=== PATIENT | female | born 1945 | race Caucasian/White ===

== ENCOUNTER → 2018-01-17 | Outpatient (CLI) | payer MEDICARE, OTHER ==
[~2018-01-17] MED LIST: ARTH650T6 PO; CALC1TAB87 PO; DIPH25CA PO; FLUO20CA12 PO; HYDR12.57 PO; LEVO75TA3 PO; LOSA100T PO; MULT-65 PO; PERC5TAB12 PO; PREM0.3T2 PO; ZOFR8TAB4 SL
[2018-01-17 14:31] LABS: AUTOMATED NEUTROPHIL # 3.2 TH/MM3 (1.8-7.7); BASOPHIL # 0.1 TH/MM3 (0-0.2); BASOPHIL % 1.5 % (0.0-2.0); EOSINOPHIL # 0.2 TH/MM3 (0-0.4); EOSINOPHIL % 2.8 % (0.0-4.0); HEMOGLOBIN 13.3 GM/DL (11.6-15.3); LYMPH % 35.2 % (9.0-44.0); LYMPHOCYTE # 2.1 TH/MM3 (1.0-4.8); MEAN CORPUSCULAR HEMOGLOBIN 31.6 PG (27.0-34.0); MEAN PLATELET VOLUME 7.6 FL (7.0-11.0); MONO % 6.2 % (0.0-8.0); MONOCYTE # 0.4 TH/MM3 (0-0.9); NEUT % 54.3 % (16.0-70.0); PLATELET COUNT 277 TH/MM3 (150-450); RED CELL DISTRIBUTION WIDTH 13.8 % (11.6-17.2); WHITE BLOOD COUNT 5.9 TH/MM3 (4.0-11.0)
[2018-01-17 14:41] LABS: BACTERIA, URINE RARE /hpf; BILIRUBIN, URINE NEG (NEG); BLOOD, URINE NEG (NEG); GLUCOSE,URINE NEG (NEG); HYALINE CAST, URINE 2 /lpf (RARE); KETONE, URINE NEG (NEG); NITRITE,URINE NEG (NEG); SQUAMOUS EPITHELIAL CELL URINE 4 /hpf (0-5); URINE COLOR YELLOW (YELLW/STRAW); URINE LEUKOCYTE ESTERASE SMALL (NEG)
--- NOTE | 2018-01-17 16:32 | EKG ---
Date Performed: 01/17/2018 Time Performed: 14:13:14 PTAGE: 72 years EKG: Sinus rhythm NORMAL ECG NO PREVIOUS TRACING DOCTOR: Shaji Sanders Interpretating Date/Time 01/17/2018 16:30:24
== END ==
LOC: CPRE 13:51
PROVIDERS: ATTEND Obstetrics & Gynecology
DX: Z01.810 Encounter for preprocedural cardiovascular examination (principal); Z01.812 Encounter for preprocedural laboratory examination; D25.9 Leiomyoma of uterus, unspecified; R10.2 Pelvic and perineal pain
CPT/HCPCS: 36415; 81001; 85025; 93005

== ENCOUNTER 2018-01-19 10:51 | Observation (INO) | payer MEDICARE, OTHER ==
--- NOTE | 2018-01-18 12:56 | MH ---
cc: Joe Kraft MD DATE OF ADMISSION: 01/19/2018 ADMITTING DIAGNOSIS: Pelvic pain with uterine fibroids. HISTORY OF PRESENT ILLNESS: The patient is a 72-year-old single white female, para 3-0-1-3, who returned for followup evaluation on 12/08/2017 reporting deep dyspareunia with no bleeding. Her vaginal ultrasound showed uterus with multiple fibroids and these appear to correlate with her pain location. Endometrium was 5 mm. Ovaries appeared to be normal. She is now admitted for surgical evaluation. PAST MEDICAL HISTORY: Previous surgery is none. MEDICATIONS: Include: 1. Losartan. 2. Hydrochlorothiazide. 3. Fluoxetine. 4. Prempro. 5. Vitamins. ALLERGIES: PENICILLIN. TRANSFUSIONS: None. OBSTETRIC HISTORY: Three vaginal deliveries, 1 spontaneous . SOCIAL HISTORY: Retired, single. Alcohol: None. Tobacco: She quit many years ago. Drugs: None. FAMILY HISTORY: Noncontributory. PHYSICAL EXAMINATION: GENERAL: She is a well-nourished, well-developed white female. VITAL SIGNS: Stable. HEENT: Exam is normal. CHEST: Clear. HEART: Regular rate. BREASTS: Symmetrical. ABDOMEN: Benign. PELVIC: Vagina is normal. Cervix normal. Uterus is irregular with fibroids. Adnexa are nonpalpable. ASSESSMENT: As above. PLAN: She is now admitted for D and C, frozen section with a planned LASH, BSO, possible SAI-BSO. While in the office the surgical procedures, the risks, benefits and complications were explained and accepted. Joe Kraft MD JAW/SB , 12:36 PM , 12:56 PM
[2018-01-18 15:45] VITALS: BP 123/58; PULSE 80; RESP 16; TEMP 98
[~2018-01-19] VITALS: Ht 149.9 cm; Wt 83.0 kg
[~2018-01-19 10:51] MED LIST changes: -PERC5TAB12 PO; -ZOFR8TAB4 SL
[2018-01-19] MEDS ORDERED: POVIDONE IODINE 5% (ANTISEPSIS KIT) 4 APPLICATIONS EACH NARE PRN (11:15)
[2018-01-19] MEDS ORDERED: LACTATED RINGER'S 1000 ML IV PRN (11:15)
[2018-01-19] MEDS ORDERED: SODIUM CHLORID 0.9% 500 ML IV PRN (11:15)
[2018-01-19] MEDS ORDERED: METOPROLOL TARTRATE 25 MG TAB PO PRN (11:15)
[2018-01-19] MEDS ORDERED: CHLORHEXIDINE GLUCONATE 2 % 1 PACK (2 CLOTHS) TOPICAL PRN (11:15)
[2018-01-19] MEDS ORDERED: ACETAMINOPHEN 1000 MG/100 ML 100 ML IV ONE (11:30)
[2018-01-19] MEDS ORDERED: LIDOCAINE HCL 1% PF 5 ML SYRINGE OTHER ONE (12:00)
[2018-01-19] MEDS ORDERED: ePHEDrine/NS 25 MG/5 ML SYRINGE IV ONE (12:00)
[2018-01-19] MEDS ORDERED: CLINDAMYCIN 900 MG/NS PREMIX 50 ML IV ONE (12:00)
[2018-01-19] MEDS ORDERED: ONDANSETRON HCL 4 MG/2 ML VIAL IV ONE (12:00)
[2018-01-19] MEDS ORDERED: ROCURONIUM INJ 50 MG/5 ML SYRINGE IV PUSH ONE (12:00)
[2018-01-19] MEDS ORDERED: KETOROLAC TROMETHAMINE 30 MG/ML (IVP) VIAL IV PUSH ONE (12:00)
[2018-01-19] MEDS ORDERED: PROPOFOL 200 MG/20 ML AMP IV ONE (12:00)
[2018-01-19] MEDS ORDERED: NEOSTIGMINE 5 MG/5 ML SYRINGE IV PUSH ONE (12:00)
[2018-01-19] MEDS ORDERED: SODIUM CHLORIDE 0.9% 20 ML VIAL IV ONE (12:00)
[2018-01-19] MEDS ORDERED: PHENYLEPH/NS 1000 MCG/10 ML SYR IV ONE (12:00)
[2018-01-19] MEDS ORDERED: LACTATED RINGER'S 1000 ML INJ 1,000 ML IV ONE (12:00)
[2018-01-19] MEDS ORDERED: GLYCOPYRROLATE 1 MG/5 ML SYRINGE IV PUSH ONE (12:00)
[2018-01-19] MEDS ORDERED: DEXAMETHASONE SOD PHOS PF 10 MG/ML VIAL ONE (12:25)
[2018-01-19] MEDS ORDERED: fentaNYL CITRATE 250 MCG/5 ML AMP ONE (12:26)
[2018-01-19] MEDS ORDERED: ROPIVACAINE 0.5% PF INJ 30 ML VIAL ONE (12:26)
[2018-01-19] MEDS ORDERED: LACTATED RINGER'S 1000 ML INJ 1,000 ML IV SCH (14:33)
[2018-01-19] MEDS ORDERED: PROMETHAZINE INJ 25 MG/ML VIAL IM PRN (14:45)
[2018-01-19] MEDS ORDERED: HYDROmorphone HCL PF 2 MG/ML VIAL IV PUSH PRN (14:45)
[2018-01-19] MEDS ORDERED: ZOLPIDEM TARTRATE 5 MG TAB PO PRN (14:45)
[2018-01-19] MEDS ORDERED: ONDANSETRON HCL 4 MG/2 ML VIAL IV PUSH PRN (14:45)
[2018-01-19] MEDS ORDERED: diphenhydrAMINE HCL 25 MG CAP PO PRN (14:45)
--- NOTE | 2018-01-19 14:55 | MP ---
cc: Joe Kraft MD DATE OF OPERATION: 01/19/2018 PREOPERATIVE DIAGNOSIS: Pelvic pain, uterine fibroids, with dyspareunia. POSTOPERATIVE DIAGNOSIS: Pelvic pain, uterine fibroids, with dyspareunia, plus cervical occlusion. PROCEDURE PERFORMED: Exam under anesthesia, attempted dilatation and curettage, followed by a laparoscopic supracervical hysterectomy, bilateral salpingo-oophorectomy. ANESTHESIA: General ET. SURGEON: Joe Kraft MD ESTIMATED BLOOD LOSS: Less than 25 mL FLUIDS: 1.3 liters crystalloid. OBJECTIVE FINDINGS: Following induction of adequate general endotracheal anesthesia, the patient was prepped and draped supine on the operating table, dorsal lithotomy position, usual sterile fashion with the bladder being drained by Robbins catheterization. The cervix was exposed with the handheld retractors, and the os was fused and would not admit a lacrimal probe or a soft dilator. The D and C was then discontinued. 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 The abdomen was opened through a 3 cm curving infraumbilical incision using a knife to cut down through the skin to the fascia. The fascia opened transversely, stripped from the muscles, peritoneum opened sharply, and the Gelport placed. Laparoscope inserted. A 5 port placed in left lower quadrant and AirSeal right lower quadrant. Uterus was 10-week size with small fibroids. Tubes and ovaries normal. Cul-de-sacs were clear. Liver edge was normal. Appendix was normal. Working first on the left, harmonic scalpel was used take left ovarian pedicle, left round ligament, left broad ligament, left-sided bladder flap and uterine vessels on the left, and same on the right. Harmonic scalpel was now used to amputate the fundus from the cervix, a pouch inserted and used to extract the fundus, tubes and ovaries, and the pouch intact through the Gelport site. This was now sent for frozen section diagnosis. Ureters inspected for good peristalsis. There was no bleeding with low pressure testing. The operative sites were coated with Evicel. The GelPort was removed and the peritoneum was sutured with a 2-0 Vicryl stitch running, the fascia with a running locking stitch of 0 Vicryl, corner to midline and tied, subcutaneous with running 3-0 Vicryl and the skin with a running subcuticular 3-0 Monocryl. Frozen section returned benign. With the scope now reinserted through the 5 port, inspection of the AirSeal port, was closed with a suture of 2-0 Vicryl for the fascia and 3-0 Monocryl subcuticular for skin. The Gelport site inspected. There was no entrapment of tissue or bleeding. Pelvis inspected. There was no bleeding. The scope was now removed, the small port removed and sutured with 3-0 Monocryl subcuticular for the skin. Dermabond applied. All counts correct. The patient was taken out [facility] ([facility] and she was awakened and taken to recovery in good condition. MD JOSEFA Almaraz/DAJA , 02:32 PM , 02:55 PM MARQUIS
[2018-01-19] MEDS ORDERED: *morphine SULFATE 4 MG/ML PERIprocedure ONLY ONE (15:13)
[2018-01-19] MEDS ORDERED: DO NOT ADM ANY ANTICOAGULANT DRUGS PRN (15:30)
[2018-01-19 15:45] VITALS: BP 123/58; PULSE 80; RESP 16; TEMP 98; O2SAT 94
[2018-01-19] MEDS: ACETAMINOPHEN 1000 MG/100 ML VIAL IV SCH (16:00)
[2018-01-19] MEDS: KETOROLAC TROMETHAMINE 30 MG/ML (IVP) VIAL IVP SCH ×2 (16:00→22:00)
[2018-01-19 18:03] LABS: HEMATOCRIT 37.7 % (35.0-46.0); HEMOGLOBIN 12.8 GM/DL (11.6-15.3)
[2018-01-19 20:00] VITALS: BP 137/63; PULSE 73; RESP 18; TEMP 98; O2SAT 95
[2018-01-19] MEDS: DOCUSATE SODIUM 100 MG CAP PO SCH (21:00)
[2018-01-20] VITALS: BP 119/60; PULSE 74; RESP 18; TEMP 97.7; O2SAT 95
[2018-01-20] MEDS: ACETAMINOPHEN 1000 MG/100 ML VIAL IV SCH ×2 (00:08→07:59)
[2018-01-20 04:00] VITALS: BP 116/56; PULSE 73; RESP 18; TEMP 98; O2SAT 95
[2018-01-20] MEDS: KETOROLAC TROMETHAMINE 30 MG/ML (IVP) VIAL IVP SCH (04:00)
[2018-01-20 05:48] LABS: AUTOMATED NEUTROPHIL # 6.7 TH/MM3 (1.8-7.7); BASOPHIL % 0.2 % (0.0-2.0); EOSINOPHIL % 0.1 % (0.0-4.0); HEMATOCRIT 35.6 % (35.0-46.0); HEMOGLOBIN 12.2 GM/DL (11.6-15.3); LYMPH % 13.1 % (9.0-44.0); LYMPHOCYTE # 1.1 TH/MM3 (1.0-4.8); MEAN CELL VOLUME 92.9 FL (80.0-100.0); MEAN CORPUSCULAR HEMOGLOBIN 31.9 PG (27.0-34.0); MEAN CORPUSCULAR HGB CONC 34.4 % (32.0-36.0); MEAN PLATELET VOLUME 7.1 FL (7.0-11.0); MONO % 3.8 % (0.0-8.0); MONOCYTE # 0.3 TH/MM3 (0-0.9); NEUT % 82.8 % (16.0-70.0); PLATELET COUNT 244 TH/MM3 (150-450); RED BLOOD COUNT 3.83 MIL/MM3 (4.00-5.30); RED CELL DISTRIBUTION WIDTH 13.6 % (11.6-17.2); WHITE BLOOD COUNT 8.1 TH/MM3 (4.0-11.0)
[2018-01-20 06:12] LABS: BICARBONATE 28.8 MEQ/L (21.0-32.0); CALCIUM 8.7 MG/DL (8.5-10.1); CREATININE 0.77 MG/DL (0.50-1.00)
[2018-01-20] MEDS: DOCUSATE SODIUM 100 MG CAP PO SCH (07:59)
[2018-01-20 08:00] VITALS: BP 144/68; PULSE 66; RESP 18; TEMP 97.7; O2SAT 94
--- NOTE | 2018-01-20 08:40 | HHI.DCPOC ---
Discharge Care Plan Report Symptoms to Your Doctor -Temperature above 100.5 degrees -Redness, of incision or excessive or foul smelling drainage -Unusual pain or calf pain -Increased vaginal bleeding -Painful or difficulty urinating -Feelings of extreme sadness or anxiety after 2 weeks Goals to Promote Your Health * To prevent worsening of your condition and complications * To maintain your health at the optimal level Directions to Meet Your Goals Take your medications as prescribed Follow your dietary instruction Follow activity as directed Ensure plenty of rest for recovery Drink fluids for hydration Keep your appointments as scheduled Take your immunizations and boosters as scheduled If your symptoms worsen call your PCP, if no PCP go to Urgent Care Center or Emergency Room Smoking is Dangerous to Your Health. Avoid second hand smoke Call the 24-hour crisis hotline for domestic abuse at Joe Kraft MD January 20, 2018 08:40
[2018-01-20] MEDS ORDERED: PERC5TAB12 PO (09:17)
[2018-01-20] MEDS ORDERED: ZOFR8TAB4 SL (09:17)
== END 2018-01-20 11:45 | disposition home or self-care (01) ==
LOC: HSDC 10:51 → EDUNIT# 13:00 → HSDI 14:51 → H1EA 16:03
PROVIDERS: ADMIT Obstetrics & Gynecology; ATTEND Obstetrics & Gynecology
DX: R10.2 Pelvic and perineal pain (principal); D25.9 Leiomyoma of uterus, unspecified; N94.12 Deep dyspareunia; N84.0 Polyp of corpus uteri; N80.0 Endometriosis of uterus; Z87.891 Personal history of nicotine dependence
CPT/HCPCS: 00840; 58542; 80048; 85014; 85018; 85025; 88307; 88331; 94150; 96374; 96376; G0378; J0131; J1100; J1885; J2270; J2370; J2405; J2710; J2795; J3010; J7120